=== PATIENT | female | born 1955 | race Caucasian/White ===

== ENCOUNTER 2017-10-28 17:56 | Emergency (ER) | payer SELFPAY ==
[~2017-10-28] VITALS: Ht 157.5 cm; Wt 55.8 kg
[2017-10-28 18:55] VITALS: Ht 157.5 cm; Wt 55.8 kg
[2017-10-28 23:51] VITALS: BP 130/70
== END 2017-10-29 00:12 | disposition home or self-care (01) ==
LOC: ED 17:56
DX: S22.32XA Fracture of one rib, left side, initial encounter for closed fracture (principal); S29.012A Strain of muscle and tendon of back wall of thorax, initial encounter; I10 Essential (primary) hypertension; E11.9 Type 2 diabetes mellitus without complications; X58.XXXA Exposure to other specified factors, initial encounter; Y93.89 Activity, other specified; Y92.89 Other specified places as the place of occurrence of the external cause; Y99.8 Other external cause status
CPT/HCPCS: 72072